=== PATIENT | female | born 1955 | race Caucasian/White ===

== ENCOUNTER 2022-10-06 12:26 | Emergency (ER) | payer MEDICARE, SELFPAY ==
[2022-10-06 12:32] VITALS: BP 157/73; PULSE 102; RESP 20; TEMP 36.9; O2SAT 99
[2022-10-06 12:39] VITALS: BP 157/73; PULSE 102; RESP 20; TEMP 36.9; O2SAT 99
--- NOTE | 2022-10-06 12:43 | ED.FALL ---
HPI - Fall General Chief Complaint: Fall Stated Complaint: injuries from fall History of Present Illness HPI Narrative: Patient presents for evaluation after a fall and hit right in gas station. Patient states she was going out the door and tripped on the rug causing her to fall hitting the left side of her head she caught herself with her left wrist and fell onto both of her knees. Patient has a hematoma to the left christian skin tear to her left wrist and both knees have abrasions. Patient is unsure if she was knocked out states she did see stars. Patient states that she does not take any blood thinners daily Related Data Home Medications Medication Instructions Recorded Confirmed hydrocodone 10 mg-acetaminophen tablet 10/06/22 325 mg tablet levothyroxine 75 mcg tablet mcg 10/06/22 Allergies Allergy/AdvReac Type Severity Reaction Status Date / Time No Known Allergies Verified 11/10/09 18:01 Review of Systems Review of Systems: CONSTITUTIONAL: Denies fever, chills, or sweats. EYES: Denies visual changes, redness, or discharge. ENT: Denies rhinorrhea, congestion, sore throat, or otalgia. CARDIOVASCULAR: Denies chest pain, palpitations, or edema. RESPIRATORY: Denies cough or dyspnea. GASTROINTESTINAL: Denies abdominal pain, nausea, vomiting, or diarrhea. GENITOURINARY: Denies dysuria or hematuria. SKIN: Denies rash or itching. MUSCULOSKELETAL: Denies back pain, joint pain, or myalgia. NEUROLOGIC: Denies headache, numbness, or weakness. PSYCHIATRIC: Denies anxiety or depression. PMFSH Comments At time of signature, agree with nursing past medical, surgical, social and family history. There is no relevant family history pertinent to the presenting complaint Exam Narrative: GENERAL: Well-appearing, well-nourished, and in no acute distress. HEAD: Normocephalic, atraumatic.egg sized hematoma t left christian with bruising EYES: PERRLA and EOMI. SPEECH IS CLEAR. NO LANGUAGE DEFICITS. CRANIAL NERVES: PUPILS EQUAL, ROUND, AND REACTIVE TO LIGHT. VISUAL MARIA FULL. EXTRA-OCULAR MOVEMENTS INTACT. NO NYSTAGMUS NOTED. FACIAL SENSATION INTACT TO LIGHT TOUCH. FACIAL MOVEMENT FULL AND SYMMETRIC. PALATE MIDLINE. TONGUE MIDLINE, MOVING EQUALLY IN BOTH DIRECTIONS. UVULA IS MIDLINE. SHOULDER SHRUG EQUAL ON BOTH SIDES. BILATERAL HAND GRASP 5/5. GAIT NORMAL. HEEL TO TOE AND TANDEM WALK NORMAL. FINGER TO NOSE NORMAL. NEG ROMBERG. ENT: Nares clear, no rhinorrhea or epistaxis. Mucous membranes moist. NECK: Supple. CHEST: Clear to auscultation. No respiratory distress. HEART: Regular rate and rhythm. No murmur heard. Normal peripheral pulses. ABDOMEN: Soft, nontender, nondistended, normal active bowel sounds. EXTREMITIES: Normal range of motion. No edema. 3cm long by 3 m wide skin tear to left writ. abrasions superficial to both knees. HAND EXAM - no swelling, no erythema, normal digit cascade with flexion of fingers, median nerve, ulnar nerve, radial nerve is intact. Normal sensation of each side of each finger, can perform `ok? sign, `cross over finger test of index and middle fingers? and `thumbs up? sign, normal thumb opposition, no scissoring. good capillary refill and radial pulse. normal flexion and extension of fingers and wrist. normal supination at wrist. Normal forearm and elbow exam. NO DEFORMITY. NORMAL ROM, HAS FULL EXTENSION AND FLEXION. COMPARTMENTS SOFT. NEGATIVE ANTERIOR, POSTERIOR DRAWER SIGNS ON TEST. NO CREPITUS. DP PULSE, NORMAL CAPILLARY REFILL MCMURRAYS, PAIN TO RIGHT MEDIAL AND DISTAL KNEE WITH KNEE FLEXION, INTERNAL AND EXTERNAL FOOT ROTATION.NO ERYTHEMA OR INCREASED WARMTH TO CALF. . SKIN: Warm, dry, no rash. NEURO: No focal deficits. Alert and oriented x3. [place] Coma Scale Eye Opening: Spontaneous 4 [place] Coma Scale Motor: Obeys Commands 6 [place] Coma Scale Verbal: Oriented 5 [place] Com[place] Scale Total 15 Course Course Level of Care: Express Care Visit Vital Signs Vital signs: Vital Signs
== END 2022-10-06 12:52 | disposition short-term general hospital (02) ==
PROVIDERS: Emergency Provider Nurse Practitioner Family
DX: S09.90XA Unspecified injury of head, initial encounter (principal); W22.8XXA Striking against or struck by other objects, initial encounter; S60.212A Contusion of left wrist, initial encounter; S61.512A Laceration without foreign body of left wrist, initial encounter; S80.212A Abrasion, left knee, initial encounter; S80.211A Abrasion, right knee, initial encounter; S00.83XA Contusion of other part of head, initial encounter; E03.9 Hypothyroidism, unspecified
CPT/HCPCS: 99212; G0463

== ENCOUNTER 2023-01-09 16:52 | Emergency (ER) | payer MEDICARE, SELFPAY ==
[2023-01-09 17:00] VITALS: BP 155/73; PULSE 79; RESP 20; TEMP 36.6; O2SAT 98
--- NOTE | 2023-01-09 17:35 | ED.WOUNDLAC ---
HPI - Wound/Laceration General Chief Complaint: Wound/Laceration Stated Complaint: Skin Sore /Left Hand Time Seen by Provider: 01/09/23 17:35 Source: patient, RN notes reviewed and old records reviewed Mode of arrival: ambulatory Limitations: no limitations History of Present Illness HPI narrative: 67-year-old female who presents to [facility] with complaints skin tear to left hand which occurred 2 days ago when she hit her hand on the car door. Patient reports that she had been cleansing her wound and applying large band-aide. Patient states that she note some yellowish drainage today and her hand is red and puffy around skin tear,Denies any fevers or acute pain rates her pain /10 described as burning. Onset (ago): day(s) (2) Location: other (dorsal left hand skin tear) Treatments prior to arrival: bandage and other (cleansing wound with soap and water) Related Data Home Medications Medication Instructions Recorded Confirmed hydrocodone 10 mg-acetaminophen tablet 10/06/22 325 mg tablet levothyroxine 75 mcg tablet mcg 10/06/22 Allergies Allergy/AdvReac Type Severity Reaction Status Date / Time No Known Allergies Verified 11/10/09 18:01 Review of Systems Review of Systems: CONSTITUTIONAL: Denies fever, chills, or sweats. CARDIOVASCULAR: Denies chest pain, palpitations, or edema. RESPIRATORY: Denies cough or dyspnea. GASTROINTESTINAL: Denies abdominal pain, nausea, vomiting SKIN: Reports redness and swelling. purulent drainage from skin tear on dorsal aspect of left hand, MUSCULOSKELETAL: Denies myalgia. NEUROLOGIC: Denies headache, numbness All systems reviewed & are unremarkable except as noted in HPI and below PMFSH Past Medical History Medical History (Updated 01/10/23 @ 14:10 by Sabrina Wahl NP) Anxiety and depression Chronic back pain Hypothyroidism Surgical History Surgical History (Updated 01/10/23 @ 14:04 by Sabrina Wahl NP) History of hysterectomy Hx of cholecystectomy Family History Family History (Updated 01/10/23 @ 14:06 by Sabrina Wahl NP) Mother Heart disease Father Cancer Social History Social History (Updated 01/10/23 @ 14:02 by Sabrina Wahl NP) Smoking packs per day: 1 Smoking cigarettes per day: 20.0 Years smoked: 30 Smoking pack-years: 30.00 Smoking status: Current every day smoker Tobacco type: cigarettes Alcohol use details: reports no alcohol use Substance use type: opiates Other substance usage details: for chronic back pain Gender identity (if verbalized by the patient): Female Comments At time of signature, agree with nursing past medical, surgical, social and family history. There is no relevant family history pertinent to the presenting complaint Exam Narrative: GENERAL: Well-appearing, well-nourished, and in no acute distress.afebrile HEAD: Normocephalic, atraumatic. EYES: PERRLA and EOMI. ENT: Nares clear, no rhinorrhea or epistaxis. Mucous membranes moist. NECK: Supple. no lymphadenopathy CHEST: Clear to auscultation. No respiratory distress.SAO2 98% on room air HEART: Regular rate and rhythm. No murmur heard. Normal peripheral pulses. ABDOMEN: Soft, nontender, nondistended, normal active bowel sounds. EXTREMITIES: Normal range of motion. No edema. SKIN: Warm, dry. skin tear to left dorsal hand measures 2cm X 3cm Erythema, tenderness, warmth with some swelling of left hand noted . Patient reports that she has noted some yellowish drainage today. NEURO: No focal deficits. Alert and oriented x3. Course Course Emergency Course: Patient is aware of diagnosis, understands and agrees to treatment plan. Anticipatory guidance given. Patient agrees to follow-up as directed and is aware of reasons to seek care at the emergency department. Portions of this record may have been created with voice recognition software Level of Care: Express Care Visit Vital Signs Vital signs: Vital Signs Temperatu
== END 2023-01-09 17:58 | disposition home or self-care (01) ==
PROVIDERS: Emergency Provider Registered Nurse; PCP Internal Medicine
DX: S61.412A Laceration without foreign body of left hand, initial encounter (principal); L03.114 Cellulitis of left upper limb; W22.8XXA Striking against or struck by other objects, initial encounter; F17.210 Nicotine dependence, cigarettes, uncomplicated
CPT/HCPCS: 99213; G0463

== ENCOUNTER 2024-01-28 11:07 | Emergency (ER) | payer MEDICARE, SELFPAY ==
[2024-01-28 11:26] VITALS: BP 161/69; PULSE 69; RESP 16; TEMP 37.2; O2SAT 100
--- NOTE | 2024-01-28 12:30 | ED.URI ---
HPI - URI/Sore Throat General Chief Complaint: Upper Respiratory Infection Stated Complaint: Cough/Headache Time Seen by Provider: 01/28/24 12:00 Source: patient, RN notes reviewed and old records reviewed Mode of arrival: ambulatory Limitations: no limitations History of Present Illness HPI Narrative: 68 year old female who presents to [facility] care with complaints of cough and headache for the past 2 days. Patient reports that she tried Tylenol but it didn't help thinks she need a Zpack. Patient admits to some fatigue and some body aches, denies any known fevers chills or sweats.Patient has long history of tobacco abuse reports he does have COPD MD elicited complaint: cough and other (headache) Pertinent past history: COPD Onset (ago): day(s) (2) Severity: moderate Able to tolerate fluids by mouth: Yes Treatments prior to arrival: acetaminophen Related Data Home Medications Medication Instructions Recorded Confirmed hydrocodone 10 mg-acetaminophen tablet 10/06/22 325 mg tablet levothyroxine 75 mcg tablet mcg 10/06/22 Allergies Allergy/AdvReac Type Severity Reaction Status Date / Time No Known Allergies Verified 11/10/09 18:01 Review of Systems Review of Systems: CONSTITUTIONAL: Reports malaise, no chills, sweats, or fever. EYES: Denies visual changes, redness, or discharge. ENT: Reports rhinorrhea, congestion,no sinus pain,no otalgia and no sore throat. CARDIOVASCULAR: Denies chest pain, palpitations, or edema. RESPIRATORY: Reports cough.? Denies acute dyspnea. GASTROINTESTINAL: Denies abdominal pain, nausea, vomiting, diarrhea SKIN: Denies rash or itching. MUSCULOSKELETAL: Reports myalgia. NEUROLOGIC: Reports headache. All systems reviewed & are unremarkable except as noted in HPI and below PMFSH Past Medical History Medical History (Updated 01/29/24 @ 11:09 by Sabrina Wahl NP) Anxiety and depression Chronic back pain COPD (chronic obstructive pulmonary disease) Hypothyroidism Surgical History Surgical History (Updated 01/10/23 @ 14:04 by Sabrina Wahl NP) History of hysterectomy Hx of cholecystectomy Family History Family History (Updated 01/10/23 @ 14:06 by Sabrina Wahl NP) Mother Heart disease Father Cancer Social History Social History (Updated 01/10/23 @ 14:02 by Sabrina Wahl NP) Smoking packs per day: 1 Smoking cigarettes per day: 20.0 Years smoked: 30 Smoking pack-years: 30.00 Smoking status: Current every day smoker Tobacco type: cigarettes Alcohol use details: reports no alcohol use Substance use type: opiates Other substance usage details: for chronic back pain Gender identity (if verbalized by the patient): Female Comments At time of signature, agree with nursing past medical, surgical, social and family history. There is no relevant family history pertinent to the presenting complaint Exam Narrative: GENERAL: Well-appearing, well-nourished, and in no acute distress. HEAD: Normocephalic EYES: PERRLA, conjunctivae clear ENT: Nares clear, turbinates edematous and erythematous, clear discharge. Mucous membranes moist. TM pearly cantu with dull light reflex bilaterally; no tragal tenderness. Oropharynx erythematous without lesions. Tonsils not enlarged and without exudate, no drooling, no hoarseness, no trismus, uvula midline.post nasal drainage NECK: Supple. No lymphadenopathy CHEST: Clear decreased to auscultation, breath sounds equal. No wheezing, rhonchi, rales, or stridor. No respiratory distress, speaks in full sentences.cough noted SAO2 100% on room air HEART: Regular rate and rhythm. No murmur heard. SKIN: Warm, dry, no rash. NEURO: Alert and oriented x3. PSYCH: Normal mood and affect Course Course Emergency Course: Patient is aware of diagnosis, understands and agrees to treatment plan.? Anticipatory guidance given.? Patient agrees to follow-up as directed and is aware of
[2024-01-28 13:25] LABS: EDCOVIDSCREEN Positive (Negative)
== END 2024-01-28 12:40 | disposition home or self-care (01) ==
PROVIDERS: Emergency Provider Registered Nurse; PCP Internal Medicine
DX: U07.1 COVID-19 (principal); F17.210 Nicotine dependence, cigarettes, uncomplicated; J44.9 Chronic obstructive pulmonary disease, unspecified; E03.9 Hypothyroidism, unspecified
CPT/HCPCS: 87635; 99213; G0463

== ENCOUNTER 2025-04-08 13:35 | Emergency (ER) | payer MEDICARE, SELFPAY ==
[2025-04-08 13:42] VITALS: BP 148/71; PULSE 91; RESP 20; TEMP 36.8; O2SAT 99
--- NOTE | 2025-04-08 13:54 | ED.URI ---
HPI - URI/Sore Throat General Chief Complaint: Upper Respiratory Infection Stated Complaint: cold symptoms Time Seen by Provider: 04/08/25 13:54 Source: patient, RN notes reviewed and old records reviewed Mode of arrival: ambulatory Limitations: no limitations History of Present Illness HPI Narrative: 69 year old female who presents to [facility] care with complaints of illness for the past 10 days. Patient reports that she initially has sinus congestion with sneezing and sinus drainage and saw her PCP an was told that it was allergy related and Claritin to be taken for symptoms. Patient reports that now she has some chest congestion with increased cough and expectoration of yellow phlegm. Patient reports that she has history of COPD and she continues to use tobacco daily. Patient reports that she has not had any fevers or acute shortness of breath, states that she is out of her Albuterol inhaler. MD elicited complaint: cough (productive) and nasal congestion Pertinent past history: COPD Onset (ago): day(s) (10 days) Consistency: progressively worsening Severity: moderate Description of mucous: yellow Able to tolerate fluids by mouth: Yes Treatments prior to arrival: other (Claritin and inhaler) Related Data Home Medications ?Medication ?Instructions ?Recorded ?Confirmed ?Last Taken ?Type hydrocodone 10 mg-acetaminophen tablet 10/06/22 Unknown History 325 mg tablet levothyroxine 75 mcg tablet mcg 10/06/22 Unknown History Allergies Allergy/AdvReac Type Severity Reaction Status Date / Time No Known Allergies Verified 11/10/09 18:01 Review of Systems Review of Systems: CONSTITUTIONAL: Denies malaise, chills, sweats, or fever. EYES: Denies visual changes, redness, or discharge. ENT: Reports rhinorrhea, congestion, sinus pain, no otalgia and no sore throat. CARDIOVASCULAR: Denies chest pain, palpitations, or edema. RESPIRATORY: Reports productive cough.? Denies acute dyspnea . GASTROINTESTINAL: Denies abdominal pain, nausea, vomiting, diarrhea SKIN: Denies rash or itching. MUSCULOSKELETAL: Denies myalgia. NEUROLOGIC: Denies headache. All systems reviewed & are unremarkable except as noted in HPI and below PMFSH Past Medical History Medical History COPD (chronic obstructive pulmonary disease) Anxiety and depression Hypothyroidism Chronic back pain Surgical History Surgical History History of hysterectomy Hx of cholecystectomy Family History Family History Mother Heart disease Father Cancer Social History Social History Smoking packs per day: 1 Smoking cigarettes per day: 20.0 Years smoked: 30 Smoking pack-years: 30.00 Smoking status: Current every day smoker Tobacco type: cigarettes Alcohol use details: reports no alcohol use Substance use type: opiates Other substance usage details: for chronic back pain Gender identity (if verbalized by the patient): Female Comments At time of signature, agree with nursing past medical, surgical, social and family history. There is no relevant family history pertinent to the presenting complaint Exam Narrative: GENERAL: Appears older than stated age, well-nourished, and in no acute distress. HEAD: Normocephalic EYES: PERRLA, conjunctivae clear ENT: Nares clear, turbinates edematous and erythematous, clear discharge. Mucous membranes moist. TM pearly cantu with dull light reflex bilaterally; no tragal tenderness. Oropharynx erythematous without lesions. Tonsils not enlarged and without exudate, no drooling, no hoarseness, no trismus, uvula midline.post nasal drainage noted. NECK: Supple. No lymphadenopathy CHEST: decreased with faint wheezes noted, breath sounds equal. + wheezing,no rhonchi, rales, or stridor. No respiratory distress, speaks in full sentences.productive cough noted with SAO2 99% on room air HEART: Regular rate and rhythm. No murmur heard. SKIN: Warm, dry, no rash. NEURO: Alert and oriented x3. PSYCH: Normal mood and affect Course Course Emergency Course: Patient is aware of diagnosis, understands and agrees to treatment plan.? Anticipatory guidance given.? Patient agrees to follow-up as directed and is aware of reasons to seek care at the emergency department. Portions of this record may have been created with voice recognition software Level of Care: Express Care Visit Vital Signs Vital signs: Vital Signs Temperature 36.8 C 04/08/25 13:42 Pulse Rate 91 04/08/25 13:42 Respiratory Rate 20 04/08/25 13:42 Blood Pressure 148/71 H 04/08/25 13:42 Pulse Oximetry 99 04/08/25 13:42 Oxygen Delivery Room Air 04/08/25 13:42 Temperature 36.8 C 04/08/25 13:42 Pulse Rate 91 04/08/25 13:42 Respiratory Rate 20 04/08/25 13:42 Blood Pressure 148/71 H 04/08/25 13:42 Pulse Oximetry 99 04/08/25 13:42 Oxygen Delivery Room Air 04/08/25 13:42 Reviewed MDM - URI/Sore Throat MDM Narrative Medical decision making narrative: Differential diagnosis considered: Good[place] virus, strep pharyngitis, allergic rhinitis, upper respiratory tract infection, sinusitis, rhinosinusitis, nasopharyngitis. viral pharyngitis, otitis media, otitis externa, pneumonia, bronchitis, viral cough syndrome, viral syndrome, and influenza.? Exam findings show no acute concerns or changes; patient is non-toxic appearing and is in no distress.? Patient is appropriate for outpatient treatment and follow-up. Differential Diagnosis Differential diagnosis: Likely upper respiratory infection, sinusitis, viral infection and other (exacerbation of COPD) Lab Data Attestation: I reviewed the patient's lab results. Critical Care Time Critical Care Time Critical Care Time: No Discharge Plan Discharge Clinical Impression: Chronic obstructive pulmonary disease with acute exacerbation Patient Disposition: Home Condition: Stable Instructions: Antibiotic Form, COPD (Chronic Obstructive Pulmonary Disease) (ED), Acute Cough (ED) Additional Instructions: Increase fluids especially juices and water [id number] cough and cold medicine of your choice for your symptoms Continue your inhaler/nebulizer as directed Steroids as directed--take with food heat to the face 20-30 minutes 4-6 times a day for pain Salt water gargles, throat lozenges or throat sprays as desired Antibiotic as directed--finished the medication If your symptoms persist, change or worsen significantly before you can contact your personal physician then please, without delay, go to the emergency department for further evaluation. Follow-up with PCP in 7-10 days or sooner if needed Follow up with PCP soon in regards to your blood pressure which is elevated above threshold for referral. Blood pressure above 120/80 may indicate pre-hypertension. 148/71 Patient Language: Bahamian Prescriptions: New prednisone 20 mg tablet 20 mg PO BID Qty: 10 0RF azithromycin 250 mg tablet See Rx Instructions .ROUTE .COMPLEX Qty: 6 0RF Rx Instructions: For 250 mg dose pack: take 500 mg today (day 1), then 250 mg for 4 days (days 2-5) albuterol sulfate [Ventolin HFA] 90 mcg/actuation HFA aerosol inhaler 2 puff inhalation QID PRN (Reason: shortness of breath or wheezing) Qty: 8.5 0RF No Action hydrocodone-acetaminophen 10-325 mg tablet levothyroxine 75 mcg tablet albuterol sulfate 90 mcg/actuation HFA aerosol inhaler 2 puff inhalation QID PRN (Reason: shortness of breath or wheezing) Qty: 6.7 0RF albuterol sulfate 90 mcg/actuation HFA aerosol inhaler 2 puff INHALATION QID PRN (Reason: shortness of breath or wheezing) Qty: 8.5 0RF Follow-up/Referrals: Juan Francisco,Solitario Bell MD [Primary Care Provider] Time of Disposition: 14:27 Quality [place] Coma Scale Eyes: Open Verbal: Oriented and Alert Motor: Follows Commands [place] Coma Total Score: 15
--- OUTSIDE RECORDS SUMMARY | 2025-04-08 16:50 | XMS_ITS | Clinical Summary ---
Author Organization [facility] Address [address] [place] [address] Phone Care Team Providers Care [facility] Agent Name Role Phone Anaya Dudley APRN, DELANEY Primary Care Provider + Allergies Active Allergy Reactions Criticality Noted Date Comments Codeine Vomiting 05/01/2016 Hydromorphone Vomiting 07/12/2017 Morphine Vomiting 07/12/2017 Medications albuterol 108 (90 Base) MCG/ACT Aerosol Solution take 1-2 Puffs by inhalation every 4 hours as needed for Wheezing. 18 g 6 2 Active diazePAM (VALIUM) 5 MG TabletIndicatio ns:Anxiety Take 1 Tablet by mouth every 8 hours as needed for Anxiety. 30 Tablet 2 Active levothyroxine (SYNTHROID) 75 MCG Tablet Take 1 Tablet by mouth daily. 90 Tablet 3 2 Active naloxone HCl (Narcan) 4 MG/0.1ML Liquid 3 Active Active Problems Problem Noted Date Diagnosed Date Hyperglycemia 10/11/2017 Physical exam, annual (Adult) 04/03/2017 Screening for breast cancer 04/03/2017 Chronic midline low back pain without sciatica 1 06/03/2016 Tobacco abuse 04/03/2017 Anxiety 04/03/2017 Acquired hypothyroidism 04/03/2017 Panlobular emphysema 04/03/2017 Encounters Date Type Department Care Team Description 04/02/2025 Transcribe Orders [facility] Central Scheduling [address] [place] [address] Olya Melvin, WHEELAGE CLERK, YARN CONDITIONER Cigarette nicotine dependence, uncomplicated (Primary Dx) from Last 3 Months Immunizations Immunization Administration Dates Next Due Hepatitis A Vaccine 08/09/1999 TDAP Vaccine 11/04/2013 Tetanus Vaccine 06/13/2006 Family History Medical History Relation Name Comments Stomach Cancer Father Heart Attack Mother High Cholesterol Sister Hypertension Sister Relation Name Status Comments Father Mother Sister Alive Social History Tobacco Use Types Packs/Day Years Used Date Smoking Tobacco: Every Day Cigarettes Smokeless Tobacco: Never Tobacco Cessation:Ready to Q uit: No; Counseling Given: No Alcohol Use Standard Drinks/Week Comments No 0 (1 standard drink = 0.6 oz pur e alcohol) PHQ-2 Answer Date Recorded Total Score - Questions 1-9 0 12/18 Sexually Active Control Partners Comments Yes Male Comments No Sex and Gender Information Value Date Recorded Sex Assigned at Not on file Legal Sex Female 9:13 PM CDT Gender Identity Not on file Sexual Orientation Not on file Last Filed Vital Signs Vital Sign Reading Time Taken Comments Blood Pressure 132/68 10/06/2022 3:41 PM CDT Pulse 82 10/06/2022 3:41 PM CDT Temperature 36.3 C (97.4 F) 10/06/2022 1:32 PM CDT Respiratory Rate 18 10/06/2022 3:41 PM CDT Oxygen Saturation 98% 10/06/2022 3:41 PM CDT Inhaled Oxygen Concentration - - Weight 53 kg (116 lb 13.5 oz) 10/06/2022 1:32 PM CDT Height 160 cm (5' 3) 10/06/2022 1:32 PM CDT Body Mass Index 20.7 10/06/2022 1:32 PM CDT Plan of Treatment Health Maintenance Due Date Last Done Comments DEXA Bone Density 1955 Hepatitis C Virus (HCV) Screening 1955 Mammogram 1953 Varicella Immunization (1 of 2 - 13+ 2-dose series) 1966 Pneumococcal Immunization (5 0+ years) (1 of 2 - PCV) 1972 Cologuard 1998 Colonoscopy 1998 Colorectal Cancer Screening 1998 Immunochemical Fecal Occult Blood 1998 Respiratory Syncytial Virus (RSV) Immunization (Adult) (1 - Risk 50-74 years 1-dose series) 2003 Zoster Immunization (1 of 2) 2003 Td Immunization Every 10 Yea rs (Adults With 1 Tdap) 11/05/2023 11/04/2013 Influenza Immunization (#1) 2025 SARS-COV-2 Immunization ( season) 2025 Hepatitis B Immunization Aged Out No longer eligible based on patient's age to complete this topic Human Papillomavirus (HPV) Immunization Aged Out No longer eligible b ased on patient's age to complete this topic Meningococcal Immunization (ACWY) Aged Out No longer eligible based on patient's age to complete this topic Rotavirus Immunization Aged Out No lo nger eligible based on patient's age to complete this topic Insurance MEDICARE PA [employer] Care Teams [facility] Agent Relationship Specialty Start Date End Date Anaya Dudley, ACCOUNT AUDITOR, YARN CONDITIONER [id number] [place] [address] PCP - General Advanced Practice Nurse 09/03/24
--- OUTSIDE RECORDS SUMMARY | 2025-04-08 16:50 | XMS_ITS | Encounter Summary ---
Author Organization [facility] Address [address] [place] [address] Phone Care Team Providers Care Waterworks Chief Engineer Name Role Phone Anaya Dudley APRN, CNP Primary Care Provider + Reason for Visit * Reason Comments Medication Refill Encounter Details Date Type Department Care Team (Late st Contact Info) Description 01/14/2023 Refill [facility] - Family Medicine - [address] [place] [address] Yuriy Francisco MD [address] [address] Medication Refill Social History Tobacco Use Types Packs/Day Years Used Date Smoking Tobacco: Every Day Cigarettes Smokeless Tobacco: Never Alcohol Use Standard Drinks/Week Comments No 0 [...] on file Sexual Orientation Not on file documented as of this encounter Plan of Treatment Not on file documented as of this encounter Visit Diagnoses Not on filedocumented in this encounter Additional Health Concerns Assessment Noted Time PHQ-9 Depression Total Score: 0 01/02/20 22 1:00 PM CDT documented as of this encounter Care Teams Waterworks Chief Engineer Relationship Specialty Start Date End Date Anaya Dud[place] APRN, CNP [address] [place] [address] [place] [address] PCP - General Advanced Practice Nurse 09/03/24 documented as of this encounter
--- OUTSIDE RECORDS SUMMARY | 2025-04-08 16:50 | XMS_ITS | Encounter Summary ---
Author Organization [facility] Address [address] [place] [address] Phone Care Team Providers Care Team Lead Name Role Phone Anaya Dudley APRN, CNP Primary Care Provider + Reason for Visit * Reason Comments Medication Refill Encounter Details Date Type Department Care Team (Late st Contact Info) Description 01/07/2023 Refill [facility] - Family Medicine - [address] [place] [address] Yuriy Francisco MD [address] [address] Medication Refill Social History Tobacco Use Types [...] documented as of this encounter Care Teams Team Lead Relationship Specialty Start Date End Date [place] APRN, CNP [address] [place] [address] [place] [address] PCP - General Advanced Practice Nurse 09/03/24 documented as of this encounter
--- OUTSIDE RECORDS SUMMARY | 2025-04-08 16:50 | XMS_ITS | Encounter Summary ---
Author Organization [facility] Address [address] [place] [address] Phone Care Team Providers Care Quality Review Trainer Name Role Phone Yuriy Francisco MD Primary Care Provider [phone] Anaya Dudley APRN, CNP Primary Care Provider + Reason for Visit * Reason Comments Medication Refill Encounter Details Date Type Department Care Team (Late st Contact Info) Description 10/14/2020 Refill [facility] - Family Medicine [facility] [address] [place] [address] Yuriy Francisco MD [address] [address] Medication Refill Social History Tobacco Use Types Packs/Day Years Used Date Smoking Tobacco: Every Day Cigarettes Smokeless Tobacco: Never Alcohol Use Standard Drinks/Week Comments No 0 (1 standard drink = 0.6 oz pur e alcohol) PHQ-2 Answer Date Recorded PHQ-2 Score 2 05/29/2019 Sexually Active Control Partners Comments Yes Male Comments No Sex and Gender Information Value Date Recorded Sex Assigned at Not on file Legal Sex Female 9:13 PM CDT Gender Identity Not on file Sexual Orientation Not on file COVID-19 Exposure Response Date Recorded In the last month, have you been in contact with someone who was confirmed or suspected to have Coronavirus / COVID-19? 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
--- OUTSIDE RECORDS SUMMARY | 2025-04-08 16:50 | XMS_ITS | Encounter Summary ---
Author Organization [facility] Address [address] [place] [address] Phone Care Team Providers Care Drafter Tool Design Name Role Phone Yuriy Francisoc MD Primary Care Provider [phone] Anaya Dudley APRN, CNP Primary Care Provider + Reason for Visit * Reason Comments Medication Refill Encounter Details Date Type Department Care Team (Late st Contact Info) Description 12/18/2021 Refill [facility] - Family Medicine [facility] [address] [place] [address] Yuriy Francisco MD #[address] [address] Medication Refill Social History Tobacco Use Types [...] on file documented as of this encounter Miscellaneous Notes * Telephone Encounter - Yamile Lowe RN - 12/19/2021 3:15 PM CDT Name from pharmacy: Levothyroxine Sodium 88 MCG Oral Tablet Will file in chart as: levothyroxine (SYNTHROID) 88 MCG Tablet The original prescription was reordered on 12/19/2021 by Yuriy Francisco MD. * Telephone Encounter - Yamile Lowe RN - 12/19/2021 8:14 AM CDT Duplicate - pended to PCP documented in this encounter Plan of Treatment Not on file documented as of this encounter Visit Diagnoses Diagnosis Acquired hypothyroidism Unspecified hypothyroidism documented in this encounter Additional Health Concerns Assessment Noted Time PHQ-9 Depression Total Score: 2 05/29/19 20 10:24 AM WAGON DRILL OPERATOR documented as of this encounter Care Teams Drafter Tool Design Relationship Specialty Start Date End Date Yuriy Francisco MD [address] [address] PCP - General Family Medicine 06/17/17 08/31/22 Anaya Dudley APRN, TRANSPORTATION SPECIALIST [address] [place] [address] PCP - General Advanced Practice Nurse 09/03/24 documented as of this encounter
== END 2025-04-08 14:36 | disposition home or self-care (01) ==
PROVIDERS: Emergency Provider Registered Nurse; PCP Internal Medicine
DX: J44.1 Chronic obstructive pulmonary disease with (acute) exacerbation (principal); F17.210 Nicotine dependence, cigarettes, uncomplicated; E03.9 Hypothyroidism, unspecified
CPT/HCPCS: 99213; G0463